=== PATIENT | male | born 1980 | race Caucasian/White ===

== ENCOUNTER 2021-08-17 13:52 | Outpatient (CLI) | payer OTHER ==
[~2021-08-17 13:52] MED LIST: KETOROLAC TROME10 MG PO; ORPHENADRINE C100 MG PO; RELAGESIC TABL1 EACH PO; ZOFRAN ODT8 MG/UDTAB PO
== END 2021-08-17 13:59 | disposition home or self-care (01) ==
LOC: RAD 13:52
PROVIDERS: ATTEND Orthopaedic Surgery
DX: M25.562 Pain in left knee (principal); M25.572 Pain in left ankle and joints of left foot